=== PATIENT | female | born 1970 | race Caucasian/White ===

== ENCOUNTER 2023-07-07 11:43 | Inpatient (IN) | payer MEDICAID ==
[2023-07-07] MEDS ORDERED: Ondansetron 4 MG/2 ML SDV IV PRN (11:50)
[2023-07-07] MEDS ORDERED: Sodium Chloride 0.9% 10 ML Syringe FLUSH PRN (11:50)
[2023-07-07] MEDS ORDERED: Ondansetron 4 MG Tab.DIS PO PRN (11:50)
[2023-07-07 12:19] LABS: BASOPHILS ABSOLUTE AUTO 0.06 10^3/uL (0.00-0.50); BASOPHILS PERCENT AUTO 0.8 % (0-1); EOSINOPHILS ABSOLUTE AUTO 0.66 10^3/uL (0.00-1.50); EOSINOPHILS PERCENT AUTO 8.6 % (0-6); HEMATOCRIT 39.8 % (37.0-47.0); HEMOGLOBIN 12.9 g/dL (12.0-16.0); IMMATURE GRAN ABSOLUTE AUTO 0.02 10^3/uL (0.00-0.49); IMMATURE GRAN PERCENT AUTO 0.3 % (0.0-4.9); LYMPHOCYTES ABSOLUTE AUTO 1.42 10^3/uL (0.60-5.00); LYMPHOCYTES PERCENT AUTO 18.6 % (24-44); MEAN CORPUSCULAR HGB CONC 32.4 g/dL (32.0-36.0); MEAN CORPUSCULAR VOLUME 86.3 fL (83.0-97.0); MONOCYTES ABSOLUTE AUTO 0.67 10^3/uL (0.00-1.50); MONOCYTES PERCENT AUTO 8.8 % (0-10); NEUTROPHILS ABSOLUTE AUTO 4.82 x10^3/uL (1.80-8.00); NEUTROPHILS PERCENT AUTO 62.9 % (41-71); PLATELET COUNT,PLT 197 10^3/uL (150-400); RED BLOOD CELL COUNT 4.61 x10^6/uL (4.00-5.50); WHITE BLOOD CELL COUNT,WBC 7.7 10^3/uL (4.0-11.0)
[2023-07-07] MEDS ORDERED: Ibuprofen 200 MG Tab PO PRN (12:19)
[2023-07-07] MEDS ORDERED: Acetaminophen 325 MG Tab PO PRN (12:19)
[2023-07-07 12:33] LABS: ALBUMIN 3.2 g/dL (3.4-5.0); BILIRUBIN TOTAL 0.5 mg/dL (0.0-1.0); C-REACTIVE PROTEIN 4.52 mg/dL (<=0.50); CALCIUM 9.4 mg/dL (8.4-10.1); CREATININE 0.9 mg/dL (0.6-1.0); EST CRCL DRUG DOSING (CG) 52.52 mL/min; POTASSIUM,K 4.7 mEq/L (3.5-5.0); PROTEIN TOTAL,TP 8.2 g/dL (6.4-8.2)
[2023-07-07] MEDS: cefTRIAXone 2 GM Vial IVPUSH SCH (13:12)
[2023-07-07] MEDS: VANCOmycin 1.75 GM/350 ML 1.75 GM in Premix Bag 1 BAG IV ONE (13:35)
[2023-07-07] MEDS: cefTRIAXone 1 GM Vial IVPUSH SCH (13:54)
[2023-07-07 13:59] LABS: COLOR,URINE YELLOW (YELLOW)
[2023-07-07 14:00] LABS: APPEARANCE,URINE CLEAR (CLEAR); BILIRUBIN,URINE NEGATIVE (NEGATIVE); GLUCOSE,URINE NEGATIVE (NEGATIVE); KETONES,URINE NEGATIVE (NEGATIVE); LEUKOCYTE ESTERASE,URINE NEGATIVE (NEGATIVE); NITRITE,URINE NEGATIVE (NEGATIVE); OCCULT BLOOD,URINE NEGATIVE (NEGATIVE); PROTEIN,URINE NEGATIVE (NEGATIVE); UROBILINOGEN,URINE 0.2 EU/dL (0.2-1.0)
[2023-07-07] MEDS: diphenhydrAMINE 50 MG/ML SDV IVPUSH ONE (16:05)
[2023-07-07] MEDS: Enoxaparin 40 MG/0.4 ML Syringe SUBCUT SCH (19:32)
[2023-07-07] MEDS: Docusate Sodium 100 MG Cap PO SCH (19:32)
[2023-07-08] MEDS: Loratadine 10 MG Tab PO SCH (07:49)
[2023-07-08] MEDS: Furosemide 20 MG Tab PO SCH (07:49)
[2023-07-08] MEDS: Multivitamin Tab PO SCH (07:49)
[2023-07-08] MEDS: cefTRIAXone 2 GM Vial IVPUSH SCH (07:50)
[2023-07-08 09:20] LABS: BASOPHILS ABSOLUTE AUTO 0.03 10^3/uL (0.00-0.50); BASOPHILS PERCENT AUTO 0.5 % (0-1); EOSINOPHILS ABSOLUTE AUTO 0.63 10^3/uL (0.00-1.50); EOSINOPHILS PERCENT AUTO 10.2 % (0-6); HEMOGLOBIN 12.8 g/dL (12.0-16.0); IMMATURE GRAN ABSOLUTE AUTO 0.01 10^3/uL (0.00-0.49); IMMATURE GRAN PERCENT AUTO 0.2 % (0.0-4.9); LYMPHOCYTES ABSOLUTE AUTO 0.98 10^3/uL (0.60-5.00); LYMPHOCYTES PERCENT AUTO 15.9 % (24-44); MEAN CORPUSCULAR HEMOGLOBIN 27.9 pg (27.0-32.0); MEAN CORPUSCULAR VOLUME 87.1 fL (83.0-97.0); MONOCYTES ABSOLUTE AUTO 0.43 10^3/uL (0.00-1.50); NEUTROPHILS ABSOLUTE AUTO 4.09 x10^3/uL (1.80-8.00); NEUTROPHILS PERCENT AUTO 66.2 % (41-71); PLATELET COUNT,PLT 201 10^3/uL (150-400); RED BLOOD CELL COUNT 4.59 x10^6/uL (4.00-5.50); WHITE BLOOD CELL COUNT,WBC 6.2 10^3/uL (4.0-11.0)
[2023-07-08 09:27] LABS: CALCIUM 8.7 mg/dL (8.4-10.1); CREATININE 0.9 mg/dL (0.6-1.0); EST CRCL DRUG DOSING (CG) 52.52 mL/min; MAGNESIUM 2.1 mg/dL (1.8-2.4); POTASSIUM,K 4.1 mEq/L (3.5-5.0)
[2023-07-08] MEDS: VANCOmycin 1 GM/200 ML 1 GM in Premix Bag 1 BAG IV SCH ×2 (10:38→10:45)
[2023-07-09 07:42] LABS: BASOPHILS ABSOLUTE AUTO 0.06 10^3/uL (0.00-0.50); EOSINOPHILS ABSOLUTE AUTO 0.83 10^3/uL (0.00-1.50); EOSINOPHILS PERCENT AUTO 14.3 % (0-6); HEMOGLOBIN 12.4 g/dL (12.0-16.0); IMMATURE GRAN ABSOLUTE AUTO 0.01 10^3/uL (0.00-0.49); IMMATURE GRAN PERCENT AUTO 0.2 % (0.0-4.9); LYMPHOCYTES ABSOLUTE AUTO 1.17 10^3/uL (0.60-5.00); LYMPHOCYTES PERCENT AUTO 20.2 % (24-44); MEAN CORPUSCULAR HEMOGLOBIN 28.1 pg (27.0-32.0); MEAN CORPUSCULAR HGB CONC 32.6 g/dL (32.0-36.0); MONOCYTES ABSOLUTE AUTO 0.58 10^3/uL (0.00-1.50); NEUTROPHILS ABSOLUTE AUTO 3.14 x10^3/uL (1.80-8.00); NEUTROPHILS PERCENT AUTO 54.3 % (41-71); PLATELET COUNT,PLT 177 10^3/uL (150-400); RED BLOOD CELL COUNT 4.42 x10^6/uL (4.00-5.50); WHITE BLOOD CELL COUNT,WBC 5.8 10^3/uL (4.0-11.0)
[2023-07-09 07:49] LABS: CALCIUM 8.6 mg/dL (8.4-10.1); CREATININE 0.8 mg/dL (0.6-1.0); EST CRCL DRUG DOSING (CG) 59.09 mL/min
[2023-07-09] MEDS: VANCOmycin 1.5 GM/300 ML 1.5 GM in Premix Bag 1 BAG IV ONE (10:19)
[2023-07-09 14:01] VITALS: BP 151/91; PULSE 78
== END 2023-07-09 14:30 | disposition home or self-care (01) | DRG 603 ==
LOC: CC.MS 11:43 → UNDOADMIN 11:43 → CC.MS 11:50
PROVIDERS: ADMIT Family Medicine; ATTEND Nurse Practitioner
DX: L03.116 Cellulitis of left lower limb (principal); Z68.41 Body mass index [BMI] 40.0-44.9, adult; L97.929 Non-pressure chronic ulcer of unspecified part of left lower leg with unspecified severity; L97.919 Non-pressure chronic ulcer of unspecified part of right lower leg with unspecified severity; I83.019 Varicose veins of right lower extremity with ulcer of unspecified site; I83.029 Varicose veins of left lower extremity with ulcer of unspecified site; L03.115 Cellulitis of right lower limb; H54.7 Unspecified visual loss; E78.00 Pure hypercholesterolemia, unspecified; M54.9 Dorsalgia, unspecified; G89.29 Other chronic pain; E66.9 Obesity, unspecified; Z88.8 Allergy status to other drugs, medicaments and biological substances; Z79.899 Other long term (current) drug therapy; Z86.010 Personal history of colon polyps; Z98.890 Other specified postprocedural states; Z87.891 Personal history of nicotine dependence
CPT/HCPCS: 29580-GP; 36415; 80048; 80053; 80202; 81003; 83735; 85025; 86140; 87070; 87077; 87186; 87205; 97161-GP; 99223; 99233; 99238; A9270-GY; J0696; J1200; J1650; J3370

== ENCOUNTER → 2023-08-17 | Day surgery (SDC) | payer MEDICAID ==
[2023-08-17] MEDS: Lidocaine 1% 30 ML SDV SUBCUT ONE (13:42)
== END ==
LOC: CC.SDS 12:15
PROVIDERS: ATTEND Family Medicine
DX: I83.12 Varicose veins of left lower extremity with inflammation (principal); L03.90 Cellulitis, unspecified; I10 Essential (primary) hypertension; Z79.899 Other long term (current) drug therapy; M17.9 Osteoarthritis of knee, unspecified; M16.12 Unilateral primary osteoarthritis, left hip
CPT/HCPCS: C1888; J3490